=== PATIENT | female | born 1980 | race African-American/Black ===

== ENCOUNTER 2018-03-20 11:41 | Emergency (ER) | payer BC ==
[~2018-03-20] VITALS: Ht 154.9 cm; Wt 97.7 kg
[~2018-03-20 11:41] MED LIST: BIOTIN 5000 PO; CLARITIN10 M1 PO; MOTRIN800 MG PO; MULTI VIT PO; PHENERGAN25 MG/ML IM; PRE-NATAL OR; TESSALON PER100 MG PO; TORADOL IM; ZITHROMAX500 MG PO; ZOFRAN ODT8 MG OR
[2018-03-20 12:29] LABS: HEMATOCRIT 35.7 % (37.0-47.0); HEMOGLOBIN 11.5 g/dl (12.0-16.0); IMMATURE GRANULOCYTES 0.2 % (0.0-5.0); MEAN CORPUSCULAR HGB 27.7 pG CALC (26.0-32.0); MEAN CORPUSCULAR HGB CONC 32.2 g/L CALC (32.0-36.0); NEUT# 2.91 thou/uL (2.00-7.15); RED BLOOD COUNT 4.15 mill/uL (4.20-5.60); RED CELL DISTRI WIDTH 12.9 % (11.5-15.5)
[2018-03-20 12:41] LABS: ANION GAP 13 (6-22 (CALC)); BUN 8 mg/dL (7-17); BUN/CREATININE RATIO 14 (12-20 (CALC)); CARBON DIOXIDE 26 mmol/l (22-30); CHLORIDE 105 mmol/l (95-108); CREATININE 0.5 mg/dL (0.5-1.0); GFR > 60 ML/MIN (>=60 (CALC)); GFR FOR AFR.AMER. > 60 ML/MIN (>=60 (CALC)); POTASSIUM 3.7 mmol/l (3.5-5.1); SODIUM 142 mmol/l (137-146)
[2018-03-20 12:58] LABS: BETA-HCG, QUANT(RESULT NUMBER) 12583 mIU/mL
[2018-03-20 13:41] LABS: URINE BILIRUBIN - DIPSTICK NEGATIVE (NEGATIVE); URINE BLOOD DIPSTICK LARGE (NEGATIVE); URINE COLOR YELLOW; URINE GLUCOSE - DIPSTICK NEGATIVE (NEGATIVE); URINE KETONE NEGATIVE (NEGATIVE); URINE LEUK ESTERASE NEGATIVE (NEGATIVE); URINE NITRITE - DIPSTICK NEGATIVE (Negative); URINE PROTEIN - DIPSTICK NEGATIVE (NEG-TRACE)
[2018-03-20] MEDS ORDERED: PHENERGAN25 MG/TAB PO (13:41)
[2018-03-20 13:46] VITALS: BP 120/75
[2018-03-20 13:46] LABS: URINE CLARITY CLEAR
[2018-03-20 13:54] LABS: URINE RBC 25-50 RBC/hpf (0-5); URINE SQUAMOUS EPITHELIAL CELL MODERATE EPI/hpf (0-FEW)
== END 2018-03-20 14:10 | disposition home or self-care (01) | DRG 782 ==
LOC: ED 11:41
PROVIDERS: Family Medicine
DX: O46.90 Antepartum hemorrhage, unspecified, unspecified trimester (principal); Z3A.00 Weeks of gestation of pregnancy not specified

== ENCOUNTER 2018-03-22 13:04 | Emergency (ER) | payer BC ==
[~2018-03-22] VITALS: Ht 154.9 cm; Wt 100.0 kg
[~2018-03-22 13:04] MED LIST changes: +PHENERGAN25 MG/TAB PO
[2018-03-22 15:31] VITALS: BP 145/77
== END 2018-03-22 15:31 | disposition home or self-care (01) | DRG 779 ==
LOC: ED 13:04
DX: O03.9 Complete or unspecified spontaneous abortion without complication (principal)

== ENCOUNTER 2019-02-22 20:03 | Emergency (ER) | payer BC ==
[~2019-02-22] VITALS: Ht 154.9 cm; Wt 100.0 kg
[2019-02-22 21:15] LABS: HEMATOCRIT 37.3 % (37.0-47.0); HEMOGLOBIN 11.5 g/dl (12.0-16.0); IMMATURE GRANULOCYTES 0.3 % (0.0-5.0); MEAN CELL VOLUME 87.6 fL CALC (80.0-100.0); MEAN CORPUSCULAR HGB CONC 30.8 g/L CALC (32.0-36.0); NEUT# 4.57 thou/uL (2.00-7.15); RED BLOOD COUNT 4.26 mill/uL (4.20-5.60); RED CELL DISTRI WIDTH 13.2 % (11.5-15.5)
[2019-02-22 21:23] LABS: URINE BILIRUBIN - DIPSTICK NEGATIVE (NEGATIVE); URINE BLOOD DIPSTICK NEGATIVE (NEGATIVE); URINE COLOR YELLOW; URINE GLUCOSE - DIPSTICK NEGATIVE (NEGATIVE); URINE KETONE NEGATIVE (NEGATIVE); URINE LEUK ESTERASE NEGATIVE (NEGATIVE); URINE NITRITE - DIPSTICK NEGATIVE (Negative); URINE PH 5.5 (4.5-8.0); URINE PROTEIN - DIPSTICK TRACE mg/dL (NEG-TRACE); URINE SPECIFIC GRAVITY >=1.030; URINE UROBILINOGEN - DIPSTICK 0.2 E.U./dL (0.2)
[2019-02-22 21:32] LABS: ALBUMIN 4.3 g/dL (3.2-5.0); ALKALINE PHOSPHATASE 48 u/l (38-126); AMYLASE 86 u/l (30-110); ANION GAP 14 (6-22 (CALC)); BUN 12 mg/dL (7-17); BUN/CREATININE RATIO 21 (12-20 (CALC)); CARBON DIOXIDE 28 mmol/l (22-30); CHLORIDE 101 mmol/l (95-108); CREATININE 0.6 mg/dL (0.5-1.0); GFR > 60 ML/MIN (>=60 (CALC)); GFR FOR AFR.AMER. > 60 ML/MIN (>=60 (CALC)); LIPASE 127 u/l (23-300); POTASSIUM 3.9 mmol/l (3.5-5.1); SGOT/AST 19 u/l (14-36); SODIUM 140 mmol/l (137-146); TOTAL PROTEIN 7.8 g/dL (6.3-8.2)
[2019-02-22 21:46] LABS: BILIRUBIN, TOTAL 0.2 mg/dL (0.0-1.4)
[2019-02-22 22:30] VITALS: BP 126/72
== END 2019-02-22 22:30 | disposition home or self-care (01) | DRG 392 ==
LOC: ED 20:03
PROVIDERS: Emergency Medicine
DX: K59.00 Constipation, unspecified (principal)